=== PATIENT | female | born 1940 | race Caucasian/White ===

== ENCOUNTER 2023-11-16 14:23 | Inpatient (IN) | payer OTHER ==
[2023-11-16] MEDS ORDERED: Magnesium 2 GM/50 ML BAG (IN WATER) ONE (15:08)
[2023-11-16 15:20] LABS: Actual Bicarbonate (HCO3v) 27.3 mEq/L (22-28); Analyzer IN Cardio CS ER; Base Excess 1.8 mEq/L (-2 - +2); Calcium, Ionized (venous) 1.05 mmol/L (1.16-1.32); Chloride (VBG) 99 mmol/L (98-106); Hematocrit-VBG 38 % (36.0-47.0); Potassium (VBG) 3.57 mmol/L (3.70-5.30); Puncture Site Other Site; RapidComm Collect By LAb; Sodium 134 mmol/L (133-146); pH (venous) 7.389 (7.32-7.43)
[2023-11-16 15:38] LABS: ALT (SGPT) 12 U/L (8-55); AST (SGOT) 29 U/L (5-34); Alkaline Phosphatase 30 U/L (40-110); Anion Gap 14 mmol/L (10-20); BUN (Urea Nitrogen) 24 mg/dL (9.8-20.1); Bilirubin, Total 0.9 mg/dL (0.2-1.2); Calc. Creatinine Clearance 0 mL/min (70-130); Calcium 8.1 mg/dL (7.8-10.44); Carbon Dioxide 24 mmol/L (23-31); Chloride 100 mmol/L (98-107); Estimated GFR 36; Globulin 2.3 g/dL (2.4-3.5); Glucose 125 mg/dL (83-110); Lipase 27 U/L (8-78); Magnesium 1.5 mg/dL (1.6-2.6); Protein, Total 5.3 g/dL (5.8-8.1); Sodium 134 mmol/L (136-145)
[2023-11-16 15:39] LABS: #Basophils 0.06 10x3/uL (0.0-0.2); #Eosinphils 0.13 10x3/uL (0.0-0.5); #Monocytes 2.02 10x3/uL (0.0-1.1); %Basophils 0.5 % (0.0-2.0); %Lymphocytes 23.9 % (18.0-47.0); %Monocytes 16.1 % (0.0-10.0); %Neutrophils 58.3 % (40.0-75.0); Hematocrit 37.6 % (34.9-44.5); Hemoglobin 12.7 g/dL (12.0-15.5); Mean Corpuscular HGB CONC 33.8 g/dL (32.0-36.0); Mean Corpuscular Hemoglobin 29.9 pg (27.0-33.0); Mean Corpuscular Volume 88.5 fl (81.6-98.3); Mean Platelet Volume 12.5 fl (7.4-10.4); Platelet Count 134 10x3/uL (150-450); RBC Distribution Width 14.1 % (11.5-14.5); Red Blood Cell (RBC) Count 4.25 10x6/uL (3.90-5.03); White Blood Cell (WBC) Count 12.5 10x3/uL (3.5-10.5)
[2023-11-16] MEDS ORDERED: Digoxin 0.5 MG/2 ML AMP ONE (15:53)
[2023-11-16] MEDS ORDERED: Digoxin 0.5 MG/2 ML AMP SLOW IVP SCH ×2 (18:00→22:00)
[2023-11-16] MEDS: Sodium Chloride 0.9% 1,000 ML IV SCH (18:09)
[2023-11-16 18:31] LABS: Lactic Acid 1.6 mmol/L (0.5-2.2)
[2023-11-16] MEDS: Cefepime 1 GM in Sodium Chloride 0.9% 100 ML IVPB SCH (18:44)
[2023-11-16 19:28] LABS: Bilirubin Neg (Negative); Blood, Urine Negative (Negative); Clarity Clear (Clear); Glucose, Urine (Dipstick) Normal (Negative); Ketone, Urine Negative (Negative); Leukocyte 500 (Negative); Nitrite Negative (Negative); Protein, Urine (Dipstick) 15 mg/dl (Neg-Trace); Specific Gravity, Urine 1.015 (1.005-1.030); Urobilinogen Normal mg/dL (Less than 2)
[2023-11-16 19:35] LABS: Bacteria/HPF Rare-Few HPF (None Seen); CAUTI Indications for Culture Alt mental st,lethar; RBC/HPF None Seen HPF (0-3); Squamous Epithelial 0-3 HPF (0-3); Urine Culture Reflex No No; Yeast-Budding Rare HPF (None Seen)
[2023-11-16] MEDS: Apixaban 5 MG TAB PO SCH (21:26)
[2023-11-16] MEDS: Digoxin 0.125 MG TAB PO SCH (21:26)
[2023-11-16] MEDS: Famotidine/PF 20 mg/2ml Vial SLOW IVP SCH (21:26)
[2023-11-16] MEDS: Albumin 25% 25 GM (100 mL) BOT IVPB SCH (21:27)
[2023-11-16] MEDS ORDERED: Bisacodyl 5 MG TAB PO PRN (21:52)
[2023-11-17 03:11] LABS: #Basophils 0.05 10x3/uL (0.0-0.2); #Eosinphils 0.22 10x3/uL (0.0-0.5); #Monocytes 1.79 10x3/uL (0.0-1.1); #Neutrophils 4.48 10x3/uL (1.5-8.4); %Basophils 0.5 % (0.0-2.0); %Eosinophils 2.2 % (0.0-6.0); %Lymphocytes 35.1 % (18.0-47.0); %Monocytes 17.7 % (0.0-10.0); %Neutrophils 44.3 % (40.0-75.0); Hematocrit 34.7 % (34.9-44.5); Hemoglobin 11.6 g/dL (12.0-15.5); Mean Corpuscular HGB CONC 33.4 g/dL (32.0-36.0); Mean Corpuscular Hemoglobin 29.4 pg (27.0-33.0); Mean Corpuscular Volume 88.1 fl (81.6-98.3); Mean Platelet Volume 11.5 fl (7.4-10.4); Platelet Count 115 10x3/uL (150-450); Red Blood Cell (RBC) Count 3.94 10x6/uL (3.90-5.03); White Blood Cell (WBC) Count 10.1 10x3/uL (3.5-10.5)
[2023-11-17 04:07] LABS: ALT (SGPT) 11 U/L (8-55); AST (SGOT) 29 U/L (5-34); Albumin 3.3 g/dL (3.4-4.8); Alkaline Phosphatase 33 U/L (40-110); Anion Gap 15 mmol/L (10-20); BUN (Urea Nitrogen) 26 mg/dL (9.8-20.1); Bilirubin, Total 0.9 mg/dL (0.2-1.2); Calc. Creatinine Clearance 44 mL/min (70-130); Calcium 8.2 mg/dL (7.8-10.44); Carbon Dioxide 23 mmol/L (23-31); Chloride 103 mmol/L (98-107); Estimated GFR 43; Globulin 2.2 g/dL (2.4-3.5); Glucose 104 mg/dL (83-110); Potassium 3.9 mmol/L (3.5-5.1); Protein, Total 5.5 g/dL (5.8-8.1); Sodium 137 mmol/L (136-145)
[2023-11-17] MEDS: Furosemide 20 MG (2 mL) VIAL SLOW IVP SCH (06:13)
[2023-11-17] MEDS: Magnesium 2 GM/50 ML(in water) 2 GM in Premix 1 BAG IVPB SCH (08:40)
[2023-11-17] MEDS: busPIRone HCl 15 MG TAB PO SCH (08:41)
[2023-11-17] MEDS: Venlafaxine HCl XR 75 MG CAP PO SCH (08:41)
[2023-11-17] MEDS: Famotidine/PF 20 mg/2ml Vial SLOW IVP SCH (08:42)
[2023-11-17] MEDS: Digoxin 0.125 MG TAB PO SCH (08:42)
[2023-11-17] MEDS: Dronedarone HCl 400 MG TAB PO SCH ×2 (11:19→18:13)
[2023-11-17 13:37] LABS: Magnesium 3.1 mg/dL (1.6-2.6)
[2023-11-17] MEDS: Ondansetron ODT 4 MG TAB PO PRN (14:59)
[2023-11-17 16:37] LABS: Critical Call Chem Troponin I ERS.HF AT 1637; Troponin I 0.947 ng/mL (< 0.028)
[2023-11-17] MEDS: Atorvastatin Calcium 10 MG TAB PO SCH (20:42)
[2023-11-17] MEDS: Acetaminophen 325 MG TAB PO PRN (20:42)
[2023-11-17] MEDS: Melatonin 3 MG TAB PO PRN (20:43)
[2023-11-18 03:21] LABS: #Basophils 0.04 10x3/uL (0.0-0.2); #Eosinphils 0.46 10x3/uL (0.0-0.5); #Monocytes 1.79 10x3/uL (0.0-1.1); #Neutrophils 3.87 10x3/uL (1.5-8.4); %Basophils 0.4 % (0.0-2.0); %Lymphocytes 32.5 % (18.0-47.0); %Monocytes 19.5 % (0.0-10.0); %Neutrophils 42.4 % (40.0-75.0); Hematocrit 32.4 % (34.9-44.5); Hemoglobin 10.9 g/dL (12.0-15.5); Mean Corpuscular HGB CONC 33.6 g/dL (32.0-36.0); Mean Corpuscular Hemoglobin 29.6 pg (27.0-33.0); Mean Platelet Volume 11.4 fl (7.4-10.4); Platelet Count 114 10x3/uL (150-450); RBC Distribution Width 14.1 % (11.5-14.5); Red Blood Cell (RBC) Count 3.68 10x6/uL (3.90-5.03); White Blood Cell (WBC) Count 9.2 10x3/uL (3.5-10.5)
[2023-11-18 03:58] LABS: ALT (SGPT) 11 U/L (8-55); AST (SGOT) 28 U/L (5-34); Albumin 3.2 g/dL (3.4-4.8); Alkaline Phosphatase 34 U/L (40-110); Anion Gap 12 mmol/L (10-20); BUN (Urea Nitrogen) 21 mg/dL (9.8-20.1); Bilirubin, Total 0.7 mg/dL (0.2-1.2); Calc. Creatinine Clearance 54 mL/min (70-130); Calcium 8.7 mg/dL (7.8-10.44); Carbon Dioxide 28 mmol/L (23-31); Chloride 102 mmol/L (98-107); Estimated GFR 54; Globulin 2.2 g/dL (2.4-3.5); Glucose 88 mg/dL (83-110); Magnesium 2.5 mg/dL (1.6-2.6); Potassium 3.6 mmol/L (3.5-5.1); Protein, Total 5.4 g/dL (5.8-8.1); Sodium 138 mmol/L (136-145)
[2023-11-18 04:06] LABS: Troponin I 0.885 ng/mL (< 0.028)
[2023-11-18] MEDS: Furosemide 20 MG (2 mL) VIAL SLOW IVP SCH (10:14)
[2023-11-18] MEDS: Metolazone 2.5 MG TAB PO SCH (10:14)
[2023-11-19 03:48] VITALS: BMI 31.7
[2023-11-19] MEDS: FLU VACC QS2023(65UP)/MF59C/PF 60 MCG/0.5 ML SYRINGE IM ONE (08:13)
[2023-11-19] MEDS: Furosemide 20 MG (2 mL) VIAL SLOW IVP SCH (08:14)
[2023-11-19 10:08] LABS: Hematocrit 38.6 % (34.9-44.5); Hemoglobin 12.8 g/dL (12.0-15.5); Mean Corpuscular HGB CONC 33.2 g/dL (32.0-36.0); Mean Corpuscular Hemoglobin 29.2 pg (27.0-33.0); Mean Corpuscular Volume 87.9 fl (81.6-98.3); Mean Platelet Volume 11.4 fl (7.4-10.4); Platelet Count 132 10x3/uL (150-450); RBC Distribution Width 13.9 % (11.5-14.5); Red Blood Cell (RBC) Count 4.39 10x6/uL (3.90-5.03); White Blood Cell (WBC) Count 10.8 10x3/uL (3.5-10.5)
[2023-11-19 10:14] LABS: Anion Gap 14 mmol/L (10-20); BUN (Urea Nitrogen) 20 mg/dL (9.8-20.1); Calc. Creatinine Clearance 55 mL/min (70-130); Calcium 9.5 mg/dL (7.8-10.44); Carbon Dioxide 28 mmol/L (23-31); Chloride 95 mmol/L (98-107); Estimated GFR 57; Glucose 96 mg/dL (83-110); Potassium 4.1 mmol/L (3.5-5.1); Sodium 133 mmol/L (136-145)
[2023-11-19 19:38] VITALS: TEMP 98.7
[2023-11-20 03:36] LABS: Hematocrit 36.5 % (34.9-44.5); Hemoglobin 12.5 g/dL (12.0-15.5); Mean Corpuscular HGB CONC 34.2 g/dL (32.0-36.0); Mean Corpuscular Hemoglobin 29.5 pg (27.0-33.0); Mean Corpuscular Volume 86.1 fl (81.6-98.3); Mean Platelet Volume 11.5 fl (7.4-10.4); Platelet Count 144 10x3/uL (150-450); RBC Distribution Width 13.5 % (11.5-14.5); Red Blood Cell (RBC) Count 4.24 10x6/uL (3.90-5.03); White Blood Cell (WBC) Count 11.3 10x3/uL (3.5-10.5)
[2023-11-20 03:58] LABS: Anion Gap 12 mmol/L (10-20); BUN (Urea Nitrogen) 23 mg/dL (9.8-20.1); Calc. Creatinine Clearance 55 mL/min (70-130); Calcium 9.7 mg/dL (7.8-10.44); Carbon Dioxide 32 mmol/L (23-31); Chloride 91 mmol/L (98-107); Estimated GFR 56; Glucose 88 mg/dL (83-110); Sodium 131 mmol/L (136-145)
[2023-11-20] MEDS: Furosemide 40 MG TAB PO SCH (08:32)
[2023-11-20 12:37] VITALS: BP 107/47
== END 2023-11-20 16:51 | DRG 280 ==
LOC: CSHERS 14:23 → CSHIMCU 17:17
PROVIDERS: ADMIT Emergency Medicine; ATTEND Internal Medicine
DX: I48.0 Paroxysmal atrial fibrillation (principal); I21.A1 Myocardial infarction type 2; I50.43 Acute on chronic combined systolic (congestive) and diastolic (congestive) heart failure; N17.9 Acute kidney failure, unspecified; I13.0 Hypertensive heart and chronic kidney disease with heart failure and stage 1 through stage 4 chronic kidney disease, or unspecified chronic kidney disease; I95.9 Hypotension, unspecified; E78.5 Hyperlipidemia, unspecified; N18.2 Chronic kidney disease, stage 2 (mild); E11.22 Type 2 diabetes mellitus with diabetic chronic kidney disease; I25.10 Atherosclerotic heart disease of native coronary artery without angina pectoris; M19.90 Unspecified osteoarthritis, unspecified site; Z96.653 Presence of artificial knee joint, bilateral; R74.02 Elevation of levels of lactic acid dehydrogenase [LDH]; I99.8 Other disorder of circulatory system; I35.0 Nonrheumatic aortic (valve) stenosis; Z90.710 Acquired absence of both cervix and uterus; Z98.84 Bariatric surgery status; Z79.82 Long term (current) use of aspirin; Z79.899 Other long term (current) drug therapy
CPT/HCPCS: 36415; 36416; 71045; 80048; 80053; 81001; 82805; 83605; 83690; 83735; 83880; 84443; 84484; 85025; 85027; 87040; 93005; 93010; 94760; 96365; 96375; J0692; J1160; J1940; J3475; J3490; J7050; P9047; Q0162; S0028